=== PATIENT | male | born 1955 | race Caucasian/White ===

== ENCOUNTER 2017-01-18 03:04 | Inpatient (IN) ==
[2017-01-18] MEDS ORDERED: methylPREDNISolone 125 MG/2 ML VIAL IVP ONE (03:13)
[2017-01-18] MEDS ORDERED: Ipratropium/Albuterol Neb 3 ML IH ONE (03:13)
--- NOTE | 2017-01-18 03:16 | Emergency Department Note ---
Disposition Clinical Impression: Acute exacerbation of chronic obstructive airways disease Disposition: Admitted As Inpatient Condition: Good Time of Disposition: 04:31 General Adult HPI - General Chief complaint: ED Shortness of Breath/Dyspnea Stated complaint: KIEL Time Seen by Provider: 01/18/17 03:09 Nursing Notes Reviewed: Yes Vital Signs Reviewed: Yes - History of Present Illness HPI Narrative: Two-day history of increased cough as well as a runny nose and sore throat. A clear sputum. Does have history of COPD. He generally does not have sputum production. He is short of breath. He has orthopnea. - Related Data Allergies Allergy/AdvReac Type Severity Reaction Status Date / Time No Known Allergies Allergy Unverified 11/08/15 13:38 All systems ED: reviewed and negative except as stated. Constitutional: Denies: fever, chills Eyes: Denies: eye pain ENT ED: Reports: throat pain, congestion (2 days), other (Runny nose for 2 days) . Denies: ear pain (Sore throat for 2 days.) Cardiovascular: Reports: orthopnea. Denies: chest pain, palpitations, edema, syncope Respiratory: Reports: cough (For 2 days.), dyspnea (For 2 days progressively getting worse.), sputum production (Clear. Generally does not have sputum production.) Gastrointestinal: Denies: abdominal pain, nausea, vomiting, diarrhea, hematemesis, melena, hematochezia Genitourinary: Denies: urgency, dysuria, frequency Musculoskeletal: Denies: back pain, neck pain Neurological: Denies: headache, weakness Physical Exam - General Limitations: no limitations General appearance: alert, in distress (Moderate respiratory distress) - Head Head exam: atraumatic, normocephalic, normal inspection - Eye Eye exam: Present: normal appearance, PERRL, EOMI. Absent: scleral icterus - ENT ENT exam: normal exam, mucous membranes moist - Neck Neck exam: Present: normal inspection, full ROM, trachea midline. Absent: meningismus - Chest Chest inspection: Present: normal inspection, symmetric chest wall rise - Respiratory Respiratory exam: Present: respiratory distress, wheezes (Tight lung sounds with scant wheezing throughout.), accessory muscle use, prolonged expiratory phase - Cardiovascular Cardiovascular exam: Present: regular rate, normal rhythm, normal heart sounds - Abdominal Exam Abdominal exam: Present: soft, Non-Tender, normal bowel sounds. Absent: tenderness, distention, guarding, rebound, rigidity, organomegaly - Extremities Exam Extremities exam: Present: normal inspection, full ROM, normal capillary refill. Absent: tenderness, pedal edema - Back Exam Back exam: Present: normal inspection, full ROM. Absent: tenderness - Neurological Exam Neurological exam: Present: alert, oriented X3 - Psychiatric Psychiatric exam: Present: normal affect, normal mood - Skin Skin exam: Present: warm, dry, intact, normal color. Absent: rash, cyanosis Course Course Narrative: Male patient in moderate respiratory distress presenting to the emergency department with a 2 day history of cough sore throat rhinorrhea and congestion and increasing dyspnea. He denies any fever or chills. He does have a sick contact of his who had this cold previously but is now getting better from it. He does have a history of COPD. He states he does have a productive cough with clear sputum. He states he generally does not have a sputum production. He denies any chest pain or abdominal pain. He denies any nausea vomiting or diarrhea. He is dyspneic on arrival. He is using accessory muscles to breathe. His lung sounds are very tight with scant wheezing. He is hypoxic at 88% room air. He does not generally wear oxygen. We will get a chest x-ray and give patient breathing treatment to help open his lungs up. Will also provide steroids and get basic lab work. - Reevaluation(s) Reevaluation #1: Since lung sounds are clear at this time. However patient is sitting at bedside still using accessory muscles to breathe. He drops into the high 80s on room air. He is maintaining a oxygen saturation in low 90s on 2 L. We will admit patient for COPD exacerbation. He is agreeable to this. Time: 04:30 - Consultations Consultation #1: Dr Biswas accepted Pt in stable condition Time: 04:40 Vital Signs Temperature 98.2 F 01/18/17 03:08 Pulse Rate 74 01/18/17 03:08 Respiratory Rate 16 01/18/17 03:08 Blood Pressure 120/68 01/18/17 03:08 O2 Sat by Pulse Oximetry 88 L 01/18/17 03:08 Temperature 98.2 F 01/18/17 03:08 Pulse Rate 75 01/18/17 04:40 Respiratory Rate 18 01/18/17 05:06 Blood Pressure 119/74 01/18/17 05:06 O2 Sat by Pulse Oximetry 95 01/18/17 04:40 Oxygen Delivery Oxygen Delivery Room Air Medical Decision Making - Medical Records Medical records reviewed: Yes I reviewed the patient's medical records. - Lab Data Result diagrams: 01/18/17 03:21 01/18/17 03:21 Lab Results 01/18/17 01/18/17 01/18/17 Range/Units 03:21 03:21 03:21 WBC 6.4 (4.3-11.1) K/mcL RBC 5.01 (4.19-5.50) M/mcL Hgb 14.6 (12.9-16.9) g/dL Hct 43.4 (37.5-50.1) % MCV 86.6 (83.0-100.0) fL MCH 29.1 (28.0-33.3) pg MCHC 33.6 (31.6-35.5) g/dL RDW 13.3 (11.5-14.5) % Plt Count 186 (140-400) K/mcL MPV 9.9 (9.4-12.4) fL Immature Gran % 0.3 (0-4) % Seg Neutrophils % 59.1 % Lymphocytes % 27.9 % Monocytes % 10.2 % Eosinophils % 1.9 % Basophils % 0.6 % Neutrophils # 3.8 (1.6-8.9) K/mcL Lymphocytes # 1.8 (0.6-4.6) K/mcL Monocytes # 0.7 (0.0-1.3) K/mcL Eosinophils # 0.1 (0.0-0.6) K/mcL Basophils # 0.0 (0.0-0.2) K/mcL Sodium 140 (136-145) mEq/L Potassium 4.2 (3.5-4.5) mEq/L Chloride 108 (98-109) mEq/L Carbon Dioxide 24 (19-29) mEq/L BUN 20 (8-26) mg/dL Creatinine 1.11 (0.72-1.25) mg/dL Est GFR ( Amer) > 60 (> 60) Est GFR (Non-Af Amer) > 60 (> 60) BUN/Creatinine Ratio 18 (6-26) Glucose 101 H (70-99) mg/dL Calculated Osmolality 293 (280-300) Calcium 8.6 (8.6-10.8) mg/dL Troponin I 0.00 (0-0.03) ng/mL B-Natriuretic Peptide (0-100) pg/mL 01/18/17 Range/Units 03:21 WBC (4.3-11.1) K/mcL RBC (4.19-5.50) M/mcL Hgb (12.9-16.9) g/dL Hct (37.5-50.1) % MCV (83.0-100.0) fL MCH (28.0-33.3) pg MCHC (31.6-35.5) g/dL RDW (11.5-14.5) % Plt Count (140-400) K/mcL MPV (9.4-12.4) fL Immature Gran % (0-4) % Seg Neutrophils % % Lymphocytes % % Monocytes % % Eosinophils % % Basophils % % Neutrophils # (1.6-8.9) K/mcL Lymphocytes # (0.6-4.6) K/mcL Monocytes # (0.0-1.3) K/mcL Eosinophils # (0.0-0.6) K/mcL Basophils # (0.0-0.2) K/mcL Sodium (136-145) mEq/L Potassium (3.5-4.5) mEq/L Chloride (98-109) mEq/L Carbon Dioxide (19-29) mEq/L BUN (8-26) mg/dL Creatinine (0.72-1.25) mg/dL Est GFR ( Amer) (> 60) Est GFR (Non-Af Amer) (> 60) BUN/Creatinine Ratio (6-26) Glucose (70-99) mg/dL Calculated Osmolality (280-300) Calcium (8.6-10.8) mg/dL Troponin I (0-0.03) ng/mL B-Natriuretic Peptide 45 (0-100) pg/mL - EKG Data EKG #1 EKG attestation: Yes I reviewed and interpreted this EKG. EKG results narrative: Normal sinus rhythm at a rate of 71. ND interval is 141. Q mu-ism is 113. QT is 382. QTC is 405. No signs of acute ischemia. No significant change from previous EKG dated 03/14/2014.
--- NOTE | 2017-01-18 03:22 | Emergency Department Note ---
START Narrative - START START: For this encounter, I have reviewed the resident, COMPUTER PATTERNMAKER, or PA documentation, treatment plan, and medical decision making; and I have had face to face time with this patient. 61 yo male with hx of COPD with SOB with cough with sputum production. also reports orthopnea, rhinorrhea. Couldn't catch his breath over the past couple days. is sick with similar symptoms. Denies fever. Pt has severe wheezing in the bilateral posterior lung bob. Pt will be given Duonebs and solumedrol. Pt feels improved after treatment, became symptomatic with ambulation. Pt agreed with plan for admission for continuation of care.
[2017-01-18 03:26] LABS: Basophils % 0.6 %; Eosinophils # 0.1 K/mcL (0.0-0.6); Eosinophils % 1.9 %; Hematocrit 43.4 % (37.5-50.1); Hemoglobin 14.6 g/dL (12.9-16.9); Immature Granulocytes % 0.3 % (0-4); Lymphocytes # 1.8 K/mcL (0.6-4.6); Lymphocytes % 27.9 %; Mean Corpuscular HGB Conc 33.6 g/dL (31.6-35.5); Mean Corpuscular Hemoglobin 29.1 pg (28.0-33.3); Mean Corpuscular Volume 86.6 fL (83.0-100.0); Mean Platelet Volume 9.9 fL (9.4-12.4); Monocytes # 0.7 K/mcL (0.0-1.3); Monocytes % 10.2 %; Neutrophils # 3.8 K/mcL (1.6-8.9); Platelet Count 186 K/mcL (140-400); Red Blood Count 5.01 M/mcL (4.19-5.50); Red Cell Distribution Width 13.3 % (11.5-14.5); Segmented Neutrophils % 59.1 %
[2017-01-18 03:45] LABS: BUN/Creatinine Ratio 18 (6-26); Blood Urea Nitrogen 20 mg/dL (8-26); Calcium 8.6 mg/dL (8.6-10.8); Carbon Dioxide 24 mEq/L (19-29); Chloride 108 mEq/L (98-109); Glucose 101 mg/dL (70-99); Osmolality,Calculated 293 (280-300); Potassium 4.2 mEq/L (3.5-4.5); Sodium 140 mEq/L (136-145); eGFR For African Americans > 60 (> 60); eGFR For Non-African Americans > 60 (> 60)
[2017-01-18] MEDS ORDERED: Naloxone 0.4 MG/ML INJ IVP PRN (05:48)
[2017-01-18] MEDS ORDERED: Acetaminophen 325 MG TABLET PO PRN (05:48)
[2017-01-18] MEDS ORDERED: Ondansetron ODT 4 MG TAB.RAPDIS SL PRN (05:48)
[2017-01-18] MEDS ORDERED: Ipratropium/Albuterol Neb 3 ML IH PRN (05:50)
--- NOTE | 2017-01-18 05:51 | Event Note ---
Date of Encounter: 01/18/17 Time of Encounter: 05:50 Patient seen and examined with medical imaging technician. Acute COPD exacerbation. Will give the patient IV steroids [id number] nebulizer treatment Q4 hours and azithromycin for acute bronchitis. Patient mentioned that his was sick complains of upper respiratory symptoms. So will check for influenza. Expected stay 2 days. Inpatient admission.
--- NOTE | 2017-01-18 05:57 | Internal Med History&Physical ---
Date of Encounter: 01/18/17 Time of Encounter: 05:54 Assessment and Plan (1) Acute exacerbation of chronic obstructive airways disease Current visit: Yes Status: Acute duoneb azithromycin solumedrol supplemental O2 Internal Medicine - H&P: HPI Chief complaint: shortness of breath Admitted From: Emergency Dept Plans for Post Hospital Care: Home History of present illness: Mr. Schwarz is a 61 year old male with a history of COPD who presents to the ER with a 2 day history of increased shortness of breath and productive cough. His was sick with a flu-like illness. He had clear sputum production with his cough and shortness of breath, now without exertion. He takes his inhaler for his COPD twice a day and does not have a shortness of breath at baseline. Past Med Surg Social Fam HX - Past Medical History Medical history: COPD Psychiatric history: no psych history - Social History Smoking Status: Current every day smoker Smokeless Tobacco Status: No Alcohol use: occasionally Drug use: none Internal Medicine - H&P: Meds Albuterol Sulfate [Albuterol Inhaler] 1 puff IH BID 01/18/17 [History] Allergies No Known Allergies Allergy (Unverified 11/08/15 13:38) All Systems PM: A 10-system review of systems was performed and is negative for pertinent findings except as documented above in the HPI. - Constitutional Constitutional: no chills, no fever(s), no night sweats - EENT Eyes: no change in vision, no discharge, no pain, no photophobia Ears: no ear discharge, no ear pain, no tinnitus Nose, mouth and throat: nasal discharge, sore throat, no dysphagia, no neck pain - Cardiovascular Cardiovascular ROS IM: dyspnea, no chest pain, no diaphoresis, no lightheadedness, no palpitations, no syncope - Respiratory Respiratory: cough, dyspnea, excessive phlegm production, no wheezing - Gastrointestinal Gastrointestinal: no abdominal pain, no diarrhea, no hematemesis, no hematochezia, no melena, no nausea, no vomiting - Musculoskeletal Musculoskeletal ROS IM: no numbness, no tingling - Integumentary Integumentary IM: no rash, no unusual bruising - Neurological Neurological ROS: no confusion, no convulsions, no focal weakness, no numbness, no tingling, no tremor(s) - Hematologic/Lymphatic Hematologic/Lymphatic: no easy bruising - Constitutional Vitals: Temp Pulse Resp BP Pulse Ox 98.2 F 75 18 119/74 95 01/18/17 03:08 01/18/17 04:40 01/18/17 05:06 01/18/17 05:06 01/18/17 04:40 General appearance: Present: A&O X 3, no acute distress (on O2 via NC), answers questions appropriately - Head Head exam: Present: atraumatic, normocephalic - Eye Eye exam: Present: PERRL, conjuntiva pink, sclera anicteric Pupils: Present: PERRL - Neck Neck exam general surgery: Present: supple, trachea midline. Absent: lymphadenopathy - Respiratory Respiratory exam: Present: prolonged expiratory phase ("tight"), wheezes ( throughout). Absent: accessory muscle use, rales, rhonchi - Cardiovascular Cardiovascular exam: Present: RRR, +S1, +S2. Absent: diastolic murmur, gallop, rubs, systolic murmur - GI/Abdominal GI/Abdominal exam: Present: normal bowel sounds, soft, no peritoneal signs. Absent: distended, tenderness - Extremities Exam Extremities exam: Present: warm, radial pulses palpable and symetrical. Absent : calf tenderness, cyanotic, pedal edema - Neurological Exam Neurological exam: Present: CN II-XII intact, oriented X3, no focal deficits. Absent: pronater drift, facial droop, speech deficit - Skin Skin exam: Present: dry, intact Internal Med - H&P Results - Labs CBC & Chem 7: 01/18/17 03:21 01/18/17 03:21
[2017-01-18] MEDS: Azithromycin 500 MG in D5% in Water 250 ML IVPB SCH (06:37)
[2017-01-18] MEDS: *HR* Heparin 5,000 UNIT/ML VIAL SQ SCH ×3 (06:37→21:24)
[2017-01-18] MEDS: Nicotine 14 MG PATCH.TD24 TD SCH (09:56)
[2017-01-18] MEDS ORDERED: Ipratropium/Albuterol Neb 3 ML IH SCH (10:00)
[2017-01-18] MEDS ORDERED: MethylPREDNISolone 40 MG/ML VIAL IVP SCH (10:00)
[2017-01-18] MEDS ORDERED: methylPREDNISolone 125 MG/2 ML VIAL IVP SCH (10:00)
[2017-01-18] MEDS: Ipratropium/Albuterol Neb 3 ML IH SCH ×5 (11:22→23:00)
--- NOTE | 2017-01-18 13:46 | Internal Med Progress Note ---
Date of Encounter: 01/18/17 Time of Encounter: 13:44 - Assessment and plan (1) Acute exacerbation of chronic obstructive airways disease Current Visit: Yes Status: Acute Assessment and plan: Continue systemic steroids and bronchodilator support continue O2 supplementation monitor O2 sat (goal O2 sat: 89-92%) continue abx titrate abx dose as patient clinically improves (decreased to Solumederol 40mg IV q12h) GI ppx for high steroid therapy (2) Tobacco abuse Current Visit: Yes Status: Acute Assessment and plan: smoking cessation counseling provided patient not ready to quit at this time nicotine supplementation therapy provided (3) DVT prophylaxis Current Visit: Yes Status: Acute Assessment and plan: Heparin SQ - Subjective Interval history: Patient is a 61y/o male admitted for dsypnea secondary to COPD exacerbation. Patient seen and examined at bedside. Resting in bed and reports of feeling better compared to the previous day. Not on home oxygen and is an every day smoker. currently saturating well on nasal cannula. Denies any cough, fever, or chills at this time. - Constitutional Vitals: Temp Pulse Resp BP Pulse Ox 97.8 F 63 16 113/66 95 01/18/17 11:05 01/18/17 11:05 01/18/17 11:05 01/18/17 11:05 01/18/17 11:05 General appearance: Present: A&O X 3, no acute distress (on O2 via NC), answers questions appropriately - Head Head exam: Present: atraumatic, normocephalic - Respiratory Respiratory exam: Present: decreased breath sounds. Absent: respiratory distress, wheezes - Cardiovascular Cardiovascular exam: Present: RRR, +S1, +S2. Absent: diastolic murmur, gallop, rubs, systolic murmur - GI/Abdominal GI/Abdominal exam: Present: distended (obese), normal bowel sounds, soft, no peritoneal signs. Absent: tenderness - Extremities Exam Extremities exam: Present: warm, radial pulses palpable and symetrical. Absent : calf tenderness, pedal edema, tenderness - Neurological Exam Neurological exam: Present: alert, oriented X3, no focal deficits - Psychiatric Psychiatric exam: Present: normal affect, normal mood Internal Medicine: Result - Labs CBC & Chem 7: 01/18/17 03:21 01/18/17 03:21 Consult Discharge Plan - Plan
[2017-01-18] MEDS: MethylPREDNISolone 40 MG/ML VIAL IVP SCH (17:13)
--- NOTE | 2017-01-18 18:05 | Electrocardiograph Report ---
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
[2017-01-19] MEDS: Ipratropium/Albuterol Neb 3 ML IH SCH ×3 (04:03→11:22)
[2017-01-19 05:18] LABS: Basophils % 0.1 %; Hematocrit 40.4 % (37.5-50.1); Hemoglobin 13.5 g/dL (12.9-16.9); Immature Granulocytes % 0.5 % (0-4); Lymphocytes % 9.4 %; Mean Corpuscular HGB Conc 33.4 g/dL (31.6-35.5); Mean Corpuscular Volume 86.9 fL (83.0-100.0); Mean Platelet Volume 10.3 fL (9.4-12.4); Monocytes # 0.8 K/mcL (0.0-1.3); Monocytes % 6.9 %; Platelet Count 195 K/mcL (140-400); Red Blood Count 4.65 M/mcL (4.19-5.50); Red Cell Distribution Width 13.6 % (11.5-14.5); Segmented Neutrophils % 83.1 %
[2017-01-19 05:23] LABS: Neutrophils # 9.1 K/mcL (1.6-8.9)
[2017-01-19 05:40] LABS: BUN/Creatinine Ratio 20 (6-26); Blood Urea Nitrogen 19 mg/dL (8-26); Calcium 8.4 mg/dL (8.6-10.8); Carbon Dioxide 24 mEq/L (19-29); Chloride 104 mEq/L (98-109); Glucose 141 mg/dL (70-99); Osmolality,Calculated 293 (280-300); Phosphorous 3.7 mg/dL (2.3-4.7); Potassium 4.3 mEq/L (3.5-4.5); Sodium 139 mEq/L (136-145); eGFR For African Americans > 60 (> 60); eGFR For Non-African Americans > 60 (> 60)
[2017-01-19] MEDS: MethylPREDNISolone 40 MG/ML VIAL IVP SCH (06:25)
[2017-01-19] MEDS: Azithromycin 500 MG in D5% in Water 250 ML IVPB SCH (06:28)
[2017-01-19] MEDS: *HR* Heparin 5,000 UNIT/ML VIAL SQ SCH ×2 (06:30→13:39)
[2017-01-19] MEDS: Nicotine 14 MG PATCH.TD24 TD SCH (09:25)
[2017-01-19 10:42] VITALS: BP 121/69
--- NOTE | 2017-01-19 14:35 | Discharge Summary ---
Date of Encounter: 01/19/17 Time of Encounter: 14:33 - Discharge Diagnosis (1) Acute exacerbation of chronic obstructive airways disease Priority: Primary Status: Acute (2) Tobacco abuse Priority: Secondary Status: Acute (3) DVT prophylaxis Priority: Secondary Status: Acute - Discharge Medications Prescriptions: Albuterol Sulfate [Albuterol Inhaler] 2 puff IH Q4H PRN #4 inhaler PRN Reason: Shortness Of Breath Azithromycin [Zithromax] 500 mg PO DAILY #3 tablet PredniSONE 40 mg PO DAILY #7 tablet Home Medications: Budesonide/Formoterol 160/4.5 [Symbicort 160/4.5] 2 puff IH BID 01/18/17 [ History] Albuterol Sulfate [Albuterol Inhaler] 2 puff IH Q4H PRN #4 inhaler 01/19/17 [Rx] Azithromycin [Zithromax] 500 mg PO DAILY #3 tablet 01/19/17 [Rx] PredniSONE 40 mg PO DAILY #7 tablet 01/19/17 [Rx] Allergies/Adverse Reactions: Allergies ibuprofen [From Motrin] Adverse Reaction (Verified 01/18/17 08:22) Weakness Procedures/tests Complete & Pending: Procedures Performed prior 72 hours Category Date Time Status EKG [ECG 12 lead ECG] [ECG] Routine Y 01/18/17 21:25 Ordered Date of admission: 01/18/17 07:25 Primary care physician: Noe Farias MD Discharging clinician: rFeda Francis Anticipated date of discharge: 01/19/17 - Patient Status Disposition: Home, Self-Care Condition: Good Functional capacity at discharge: independent ambulation Overall status at discharge: patient is back to baseline - Discharge Instructions Follow Up With: Noe Farias MD [Primary Care Provider] - Forms: ED Satisfaction Letter Additional Instructions: Please follow-up with your primary care physician within 5 days after discharge from the hospital. Please continue to take prednisone and azithromycin as prescribed. Smoking cessation is recommended. Albuterol inhaler has been added to your home medications. Please use this inhaler as needed. Resume all home medications as prescribed by your primary care physician. - Diet and Activity Activity: resume usual activities as tolerated Diet: advance to your usual diet Hospital course: Mr. Schwarz is a 61 year old male with past medical history of COPD and tobacco abuse who was admitted for shortness of breath secondary to COPD exacerbation. Patient was started on IV steroids and bronchodilators, and IV antibiotics. He responded well to therapy and reports of feeling significantly better since his hospitalization. Extensive smoking cessation counseling was provided and patient states that he will try to quit after discharge. He is currently hemodynamically stable and saturating well on room air. He will be discharged home with oral steroids and oral antibiotics. He is to follow up with his primary care physician within 5 days after his discharge from the hospital. Patient demonstrates understanding of his diagnosis and agrees with the discharge care and plan. Time spent discussing smoking cessation with patient: 3 to 10 minutes - Time Spent with Patient Total time spent providing and/or coordinating discharge services: Less than 30 minutes - Constitutional Vitals: Temp Pulse Resp BP Pulse Ox 97.7 F 69 20 121/69 93 L 01/19/17 10:34 01/19/17 10:34 01/19/17 11:23 01/19/17 10:34 01/19/17 11:23 General appearance: Present: A&O X 3, no acute distress (on O2 via NC), answers questions appropriately - Head Head exam: Present: atraumatic, normocephalic - Eye Eye exam: Present: PERRL, conjuntiva pink, sclera anicteric - Respiratory Respiratory exam: Present: decreased breath sounds (equal air entry bilaterally) . Absent: respiratory distress, wheezes - Cardiovascular Cardiovascular exam: Present: RRR, +S1, +S2 - Extremities Exam Extremities exam: Present: warm, radial pulses palpable and symetrical. Absent : calf tenderness, cyanotic, pedal edema - Neurological Exam Neurological exam: Present: alert, oriented X3 - Psychiatric Psychiatric exam: Present: normal affect, normal mood
--- NOTE | 2017-01-21 15:10 | Electrocardiograph Report ---
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
== END 2017-01-19 15:15 | disposition home or self-care (01) | DRG 192 ==
LOC: EMEROO 03:04 → 3BNU 03:04 → SUATTDRO 05:04 → 3BNU 05:23
PROVIDERS: ADMIT Hospitalist; ATTEND Internal Medicine

== ENCOUNTER 2017-01-22 11:14 | Inpatient (IN) ==
[2017-01-22] MEDS ORDERED: Acetaminophen 325 MG TABLET PO PRN (13:26)
--- NOTE | 2017-01-22 14:07 | Internal Med History&Physical ---
Date of Encounter: 01/22/17 Time of Encounter: 13:54 Assessment and Plan (1) Acute respiratory failure with hypoxia Current visit: Yes Status: Acute Patient's oxygen saturation was 88% on room air in his PCP office and dropped to 84% but minimal ambulation. Oxygen saturation improved to 94% with supplemental oxygen at 2 L/m. 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 His respiratory failure is likely secondary to COPD exacerbation. Other causes for respiratory failure such as pneumonia, pleural effusion and acute exacerbation of CHF been considered and ruled out based on clinical and x-ray findings. Pulmonary embolus has been ruled out given the patient has no tachycardia and no chest pain. I have obtained an ABG which which reflects moderate hypoxemia, normal CO2 and respiratory alkalosis likely compensatory. We will treat the patient with oxygen by nasal cannula to maintain saturation above 92%. We will requalify him for home oxygen just prior to discharge. (2) COPD exacerbation Current visit: No Status: Acute This is a moderate to severe COPD exacerbation causing severe functional limitation. The patient received treatment with prednisone outpatient and inhaled albuterol however his symptoms continued to get worse every day and therefore he failed outpatient treatment. I will check viral respiratory panel to rule out viral infection as a possible trigger. Patient does report increased sputum production of "slimy brown sputum ". We will treat him with antibiotics, add IV Levaquin. We will treat him with IV steroids and inhaled albuterol and Atrovent. We will refer him to outpatient PFTs after the current episode has resolved. (3) DVT prophylaxis Current visit: No Status: Acute Currently the patient is quite immobile due to severe limitation secondary to dyspnea on exertion and shortness of breath and therefore he will benefit from DVT prophylaxis with Lovenox. (4) Tobacco abuse Current visit: No Status: Acute Have encouraged the patient to continue to refrain from smoking and emphasized the benefits of smoking cessation and provided him with smoking cessation resources. Internal Medicine - H&P: HPI Chief complaint: Shortness of breath Admitted From: Direct Admit Plans for Post Hospital Care: Home History of present illness: Mr. Schwarz is a 61 year old male with past medical history significant for COPD who was recently admitted to our service and treated for COPD exacerbation and was coming today for evaluation of shortness of breath. He was in his usual state of health until 7 days ago when he started having gradually increasing shortness of breath and wheezing. 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 One day later and shortness of breath has gotten more severe and he presented to the hospital. He was admitted and treated in the hospital for COPD exacerbation and discharged home. On the day of discharge he reported no shortness of breath, no chest pain, persistent cough. While at home he reported compliance with this medication. In spite of that he started feeling more short of breath every day. He has a follow-up appointment with his PCP yesterday and he appeared to be severely short of breath, speaking in single word sentences and his oxygen saturation on room air was 88% at rest. He was referred to be evaluated in the emergency department which was done yesterday and he was discharged home with home oxygen. While at home he reported that his shortness of breath was mild to moderate at rest improved with use of oxygen at 2 L by nasal cannula. He reported continued cough productive of brown sputum and associated wheezing. He states that when he ambulates 15 feet he gets completely breathless and in spite of using oxygen he has to sit down to rest. He presented to the hospital for a follow-up visit and is being directly admitted for further care. A 10 point review of systems was negative except as above. Past medical history pertinent for COPD, no history of oxygen dependence. Family history was reviewed and found to be noncontributory to this presentation. 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 Has been a lifelong smoker up until a week ago when he was admitted to the hospital and reports that he has not smoked since discharge. Drinks beers occasionally, denies recreational drug use. Past Med Surg Social Fam HX - Past Medical History Medical history: asthma, COPD Psychiatric history: no psych history - Past Surgical History Surgical History: non-contributory - Social History Smoking Status: Former smoker Smokeless Tobacco Status: No Alcohol use: occasionally Drug use: none Internal Medicine - H&P: Meds Budesonide/Formoterol 160/4.5 [Symbicort 160/4.5] 2 puff IH BID 01/18/17 [ History] Albuterol Sulfate [Albuterol Inhaler] 2 puff IH Q4H PRN #4 inhaler 01/19/17 [Rx] Azithromycin [Zithromax] 500 mg PO DAILY #3 tablet 01/19/17 [Rx] PredniSONE 40 mg PO DAILY #7 tablet 01/19/17 [Rx] Ipratropium/Albuterol Neb [Duoneb] 3 ml IH Q4HR PRN #30 vial.neb 01/21/17 [Rx] Allergies No Known Allergies Allergy (Verified 01/21/17 14:01) All Systems PM: A 10-system review of systems was performed and is negative for pertinent findings except as documented above in the HPI. - Constitutional Vitals: Temp Pulse Resp BP Pulse Ox 97.9 F 62 18 138/83 95 01/22/17 13:17 01/22/17 13:17 01/22/17 13:17 01/22/17 13:17 01/22/17 13:17 General appearance: Present: A&O X 3, no acute distress Exam: Speaks in full sentences while at rest while wearing oxygen. While ambulating 12 feet the patient appears breath loss and tachypneic - Head Head exam: Present: atraumatic, normocephalic - Eye Eye exam: Present: PERRL, conjuntiva pink, sclera anicteric Pupils: Present: PERRL - Respiratory Respiratory exam: Present: decreased breath sounds, CTAB, prolonged expiratory phase, wheezes. Absent: accessory muscle use, rales, respiratory distress, rhonchi, stridor - Cardiovascular Cardiovascular exam: Present: RRR, +S1, +S2. Absent: diastolic murmur, gallop, rubs, systolic murmur - GI/Abdominal GI/Abdominal exam: Present: normal bowel sounds, soft, no peritoneal signs. Absent: distended, tenderness - Extremities Exam Extremities exam: Present: warm, radial pulses palpable and symetrical. Absent : calf tenderness, cyanotic, pedal edema - Neurological Exam Neurological exam: Present: CN II-XII intact, oriented X3, no focal deficits. Absent: pronater drift, facial droop, speech deficit - Skin Skin exam: Present: dry, intact Internal Med - H&P Results - Labs Labs: Review of past medical records from ER visit on 01/21/2017 blood work reveals hemoglobin 14.8. Platelets 9.1 platelet count 196. Chemistry: Sodium 137 potassium 4.0 BUN 18 creatinine 1.06 glucose 87. Troponin 0.00 BNP 54. Chest x-ray done yesterday which I personally reviewed shows no infiltrate effusion or vascular congestion. - EKG Data -: EKG Interpreted by Myself EKG shows normal: sinus rhythm (69 bpm), intervals, QRS complexes
[2017-01-22 14:11] LABS: ABG Base Excess 4.9 mEq/L (-2.0 to 3.0); ABG HCO3 29.2 mEQ/L (21-27); ABG Oxygen Saturation 95 % (95-98); ABG PCO2 41 mmHg (35-45); ABG PH 7.46 pH Units (7.32-7.45); ABG PO2 73 mmHg (85-104); ABG TCO2 30.5 mEq/L (20-26)
[2017-01-22 14:13] LABS: Blood Gas Liter Flow 3.5 L/MIN
[2017-01-22] MEDS: Levofloxacin 750 MG/150 ML 750 MG/150 ML BAG IVPB SCH (14:34)
[2017-01-22] MEDS: methylPREDNISolone 125 MG/2 ML VIAL IVP SCH ×2 (14:35→17:44)
[2017-01-22] MEDS: Ipratropium/Albuterol Neb 3 ML IH SCH ×3 (16:37→23:05)
[2017-01-22] MEDS ORDERED: Ipratropium/Albuterol Neb 3 ML IH PRN (18:17)
[2017-01-22 18:21] LABS: Adenovirus Not Detected (Not Detect); Coronavirus 229E Not Detected (Not Detect); Coronavirus HKU1 Not Detected (Not Detect); Coronavirus NL63 Not Detected (Not Detect); Coronavirus OC43 Not Detected (Not Detect)
[2017-01-22 18:22] LABS: Bordetella Pertussis Not Detected (Not Detect); Chlamydophila pneumoniae Not Detected (Not Detect); Human Metapneumovirus Not Detected (Not Detect); Human Rhinovirus/Enterovirus ***DETECTED*** (Not Detect); Influenza A Subtype 2009 H1 Not Detected (Not Detect); Influenza A Untypeable Not Detected (Not Detect); Influenza B Not Detected (Not Detect); Mycoplasma pneumoniae Not Detected (Not Detect); Parainfluenza Virus 1 Not Detected (Not Detect); Parainfluenza Virus 2 Not Detected (Not Detect); Parainfluenza Virus 3 Not Detected (Not Detect); Parainfluenza Virus 4 Not Detected (Not Detect); Respiratory Syncytial Virus Not Detected (Not Detect)
[2017-01-22] MEDS: Budesonide/Formoterol 160/4.5 MDI IH SCH (20:24)
[2017-01-23] MEDS: methylPREDNISolone 125 MG/2 ML VIAL IVP SCH ×3 (00:01→12:52)
[2017-01-23] MEDS: Ipratropium/Albuterol Neb 3 ML IH SCH ×6 (03:49→23:06)
[2017-01-23 05:58] LABS: Basophils % 0.1 %; Hematocrit 40.7 % (37.5-50.1); Hemoglobin 14.1 g/dL (12.9-16.9); Immature Granulocytes % 0.8 % (0-4); Lymphocytes % 9.4 %; Mean Corpuscular HGB Conc 34.6 g/dL (31.6-35.5); Mean Corpuscular Hemoglobin 29.6 pg (28.0-33.3); Mean Corpuscular Volume 85.3 fL (83.0-100.0); Mean Platelet Volume 10.5 fL (9.4-12.4); Monocytes # 0.4 K/mcL (0.0-1.3); Monocytes % 3.3 %; Neutrophils # 9.1 K/mcL (1.6-8.9); Platelet Count 211 K/mcL (140-400); Red Blood Count 4.77 M/mcL (4.19-5.50); Segmented Neutrophils % 86.4 %
[2017-01-23] MEDS: *HR* Enoxaparin 40 MG/0.4 ML SYRINGE SQ SCH (05:58)
[2017-01-23 06:10] LABS: BUN/Creatinine Ratio 26 (6-26); Blood Urea Nitrogen 26 mg/dL (8-26); Calcium 8.5 mg/dL (8.6-10.8); Carbon Dioxide 22 mEq/L (19-29); Chloride 101 mEq/L (98-109); Glucose 136 mg/dL (70-99); Magnesium 2.2 mg/dL (1.6-2.6); Osmolality,Calculated 287 (280-300); Potassium 4.4 mEq/L (3.5-4.5); Sodium 135 mEq/L (136-145); eGFR For African Americans > 60 (> 60); eGFR For Non-African Americans > 60 (> 60)
[2017-01-23] MEDS: Budesonide/Formoterol 160/4.5 MDI IH SCH ×2 (08:23→20:17)
[2017-01-23] MEDS: Levofloxacin 750 MG/150 ML 750 MG/150 ML BAG IVPB SCH (09:15)
--- NOTE | 2017-01-23 13:48 | Internal Med Progress Note ---
Date of Encounter: 01/23/17 Time of Encounter: 13:45 - Assessment and plan (1) Acute respiratory failure with hypoxia Current Visit: Yes Status: Acute Assessment and plan: Acute chronic hypoxic respiratory failure secondary to acute COPD exacerbation due to rhinovirus infection/bronchitis Continue IV Solu-Medrol decreased dose down to 40 mg IV 3 times a day Consider discontinuing Levaquin day 2 Continue oxygen therapy, recently qualified for oxygen at home Continue DuoNeb's (2) Rhinovirus infection Current Visit: Yes Status: Acute (3) Acute exacerbation of chronic obstructive airways disease Current Visit: No Status: Acute Assessment and plan: High risk for respiratory failure (4) Tobacco abuse Current Visit: No Status: Acute Assessment and plan: Smoking cessation counseling given for 5 minutes Nicotine patch offered - Time Spent With Patient Greater than 35 minutes - Subjective Interval history: Feeling less short of breath, no chest pain, no abdominal pain, no dysuria, no fevers overnight. Feels still weak - Constitutional Vitals: Temp Pulse Resp BP Pulse Ox 97.8 F 79 16 113/68 95 01/23/17 10:35 01/23/17 10:35 01/23/17 10:35 01/23/17 10:35 01/23/17 10:35 General appearance: Present: A&O X 3, no acute distress - Head Head exam: Present: atraumatic, normocephalic - Eye Eye exam: Present: PERRL, conjuntiva pink, sclera anicteric Pupils: Present: PERRL - Neck Neck exam general surgery: Present: supple, trachea midline. Absent: lymphadenopathy - Respiratory Respiratory exam: Present: decreased breath sounds (Very diminished breath sounds, with diffuse wheezing), CTAB, wheezes. Absent: accessory muscle use, rales, rhonchi - Cardiovascular Cardiovascular exam: Present: RRR, +S1, +S2. Absent: diastolic murmur, gallop, rubs, systolic murmur - GI/Abdominal GI/Abdominal exam: Present: normal bowel sounds, soft, no peritoneal signs. Absent: distended, tenderness - Extremities Exam Extremities exam: Present: warm, radial pulses palpable and symetrical. Absent : calf tenderness, cyanotic, pedal edema - Neurological Exam Neurological exam: Present: CN II-XII intact, oriented X3, no focal deficits. Absent: pronater drift, facial droop, speech deficit - Skin Skin exam: Present: dry, intact Internal Medicine: Result - Labs CBC & Chem 7: 01/23/17 05:18 01/23/17 05:18 Labs: Short CBC 01/23/17 Range/Units 05:18 WBC 10.6 (4.3-11.1) K/mcL Hgb 14.1 (12.9-16.9) g/dL Hct 40.7 (37.5-50.1) % Plt Count 211 (140-400) K/mcL Neutrophils # 9.1 H (1.6-8.9) K/mcL BMP 01/23/17 05:18 Sodium 135 L Potassium 4.4 Chloride 101 Carbon Dioxide 22 BUN 26 Creatinine 0.99 Glucose 136 H Calcium 8.5 L - ABG Interpretation ABG results: ABG ABG pH 7.46 pH Units (7.32-7.45) H 01/22/17 14:00 ABG pCO2 41 mmHg (35-45) 01/22/17 14:00 ABG pO2 73 mmHg (85-104) L 01/22/17 14:00 ABG O2 Saturation 95 % (95-98) 01/22/17 14:00 Consult Discharge Plan - Plan Referrals: Noe Farias MD [Primary Care Provider] -
[2017-01-23] MEDS: MethylPREDNISolone 40 MG/ML VIAL IVP SCH ×2 (16:52→23:32)
[2017-01-24] MEDS: Ipratropium/Albuterol Neb 3 ML IH SCH ×6 (04:17→23:06)
[2017-01-24] MEDS: *HR* Enoxaparin 40 MG/0.4 ML SYRINGE SQ SCH (05:26)
[2017-01-24] MEDS: Budesonide/Formoterol 160/4.5 MDI IH SCH ×2 (07:38→19:50)
[2017-01-24] MEDS: MethylPREDNISolone 40 MG/ML VIAL IVP SCH ×2 (09:23→23:45)
[2017-01-24] MEDS: Levofloxacin 750 MG/150 ML 750 MG/150 ML BAG IVPB SCH (09:23)
--- NOTE | 2017-01-24 09:48 | Internal Med Progress Note ---
Date of Encounter: 01/24/17 Time of Encounter: 09:47 - Assessment and plan (1) Acute respiratory failure with hypoxia Current Visit: Yes Status: Acute Assessment and plan: Acute chronic hypoxic respiratory failure secondary to acute COPD exacerbation due to rhinovirus infection/bronchitis Continue IV Solu-Medrol decreased dose down to 40 mg IV 3 times a day Consider discontinuing Levaquin day 3 Continue oxygen therapy, recently qualified for oxygen at home Continue DuoNeb's (2) Rhinovirus infection Current Visit: Yes Status: Acute (3) Acute exacerbation of chronic obstructive airways disease Current Visit: No Status: Acute Assessment and plan: High risk for respiratory failure (4) Tobacco abuse Current Visit: No Status: Acute Assessment and plan: Smoking cessation counseling given for 5 minutes Nicotine patch offered - Time Spent With Patient Greater than 35 minutes - Subjective Interval history: Feeling less short of breath than the prior days, no chest pain, no abdominal pain, no dysuria, no fevers overnight. Feels less weak - Constitutional Vitals: Temp Pulse Resp BP Pulse Ox 98.0 F 69 16 131/66 96 01/24/17 07:00 01/24/17 07:00 01/24/17 07:00 01/24/17 07:00 01/24/17 07:00 General appearance: Present: A&O X 3, no acute distress - Head Head exam: Present: atraumatic, normocephalic - Eye Eye exam: Present: PERRL, conjuntiva pink, sclera anicteric Pupils: Present: PERRL - Neck Neck exam general surgery: Present: supple, trachea midline. Absent: lymphadenopathy - Respiratory Respiratory exam: Present: decreased breath sounds (Very diminished breath sounds with less wheezing), CTAB, wheezes. Absent: accessory muscle use, rales , rhonchi - Cardiovascular Cardiovascular exam: Present: RRR, +S1, +S2. Absent: diastolic murmur, gallop, rubs, systolic murmur - GI/Abdominal GI/Abdominal exam: Present: normal bowel sounds, soft, no peritoneal signs. Absent: distended, tenderness - Extremities Exam Extremities exam: Present: warm, radial pulses palpable and symetrical. Absent : calf tenderness, cyanotic, pedal edema - Neurological Exam Neurological exam: Present: CN II-XII intact, oriented X3, no focal deficits. Absent: pronater drift, facial droop, speech deficit - Skin Skin exam: Present: dry, intact Internal Medicine: Result - Labs CBC & Chem 7: 01/23/17 05:18 01/23/17 05:18 - ABG Interpretation ABG results: ABG ABG pH 7.46 pH Units (7.32-7.45) H 01/22/17 14:00 ABG pCO2 41 mmHg (35-45) 01/22/17 14:00 ABG pO2 73 mmHg (85-104) L 01/22/17 14:00 ABG O2 Saturation 95 % (95-98) 01/22/17 14:00 Consult Discharge Plan - Plan Referrals: Noe Farias MD [Primary Care Provider] -
[2017-01-25] MEDS ORDERED: Ketorolac 15 MG/ML VIAL IVP PRN (01:06)
[2017-01-25] MEDS ORDERED: *HR* OxyCODONE Immed Rel 5 MG TABLET PO PRN (01:06)
[2017-01-25] MEDS: Ipratropium/Albuterol Neb 3 ML IH SCH ×3 (04:04→11:26)
[2017-01-25] MEDS: *HR* Enoxaparin 40 MG/0.4 ML SYRINGE SQ SCH (05:53)
[2017-01-25] MEDS: Budesonide/Formoterol 160/4.5 MDI IH SCH (07:40)
--- NOTE | 2017-01-25 08:59 | Discharge Summary ---
Date of Encounter: 01/25/17 Time of Encounter: 08:53 - Discharge Diagnosis (1) Acute respiratory failure with hypoxia Priority: Primary Status: Acute Comments: Acute on chronic hypoxic respiratory failure secondary to acute COPD exacerbation due to rhinovirus infection/bronchitis Was using 2 Lt of oxygen at home stop Levaquin day 4 (2) Rhinovirus infection Priority: Primary Status: Acute (3) Acute exacerbation of chronic obstructive airways disease Priority: Primary Status: Acute (4) Tobacco abuse Priority: Secondary Status: Acute - Discharge Medications Prescriptions: OxyCODONE Immed Rel [Roxicodone 5 MG] 10 mg PO Q6HR PRN #30 tablet PRN Reason: Severe Pain PredniSONE 10 mg PO DAILY 18 Days Home Medications: Budesonide/Formoterol 160/4.5 [Symbicort 160/4.5] 2 puff IH BID 01/18/17 [ History] Albuterol Sulfate [Albuterol Inhaler] 2 puff IH Q4H PRN #4 inhaler 01/19/17 [Rx] Ipratropium/Albuterol Neb [Duoneb] 3 ml IH Q4HR PRN #30 vial.neb 01/21/17 [Rx] OxyCODONE Immed Rel [Roxicodone 5 MG] 10 mg PO Q6HR PRN #30 tablet 01/25/17 [Rx] PredniSONE 10 mg PO DAILY 18 Days 01/25/17 [Rx] Allergies/Adverse Reactions: Allergies No Known Allergies Allergy (Verified 01/21/17 14:01) Date of admission: 01/22/17 16:28 Primary care physician: Noe Farias MD - Patient Status Disposition: Home, Self-Care Condition: Good Overall status at discharge: patient is progressing back to baseline - Discharge Instructions Follow Up With: Noe Farias MD [Primary Care Provider] - Additional Instructions: Follow with primary care physician within the next 7 days. Continue prednisone taper. Continue inhalers and oxygen as needed. Quit smoking - Diet and Activity Activity: increase activity as tolerated Diet: low fat, low cholesterol Hospital course: Mr. Schwarz is a 61 year old male with past medical history significant for COPD who was recently admitted to our service and treated for a COPD exacerbation. He was in his usual state of health until 7 days ago when he started having gradually increasing shortness of breath and wheezing. 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 His shortness of breath got more severe and he presented to the hospital. He was admitted and treated in the hospital for COPD exacerbation and discharged home. On the day of discharge he reported no shortness of breath, no chest pain, persistent cough. While at home he reported compliance with this medication. In spite of that, he started feeling more short of breath every day. His saturation on room air was 88% at rest. While at home he reported that his shortness of breath was mild to moderate at rest improved with use of oxygen at 2 L by nasal cannula. He reported continued cough productive of brown sputum and associated wheezing. Upon admission, his ABG shows a pH of 7.46 PCO2 of 41 and PO2 of 73. He was positive for rhino/enterovirus. Was started on IV Solu-Medrol and Levaquin, has completed 4 days of Levaquin. Time spent discussing smoking cessation with patient: 3 to 10 minutes - Time Spent with Patient Total time spent providing and/or coordinating discharge services: Greater than 30 minutes (40 min) - Constitutional Vitals: Temp Pulse Resp BP Pulse Ox 98.0 F 67 16 132/72 96 01/24/17 07:00 01/25/17 05:10 01/25/17 07:42 01/25/17 05:10 01/25/17 07:42 General appearance: Present: A&O X 3, no acute distress - Head Head exam: Present: atraumatic, normocephalic - Eye Eye exam: Present: PERRL, conjuntiva pink, sclera anicteric Pupils: Present: PERRL - Neck Neck exam general surgery: Present: supple, trachea midline. Absent: lymphadenopathy - Respiratory Respiratory exam: Present: decreased breath sounds (Very diminished breath sounds), CTAB. Absent: accessory muscle use, rales, rhonchi, wheezes - Cardiovascular Cardiovascular exam: Present: RRR, +S1, +S2. Absent: diastolic murmur, gallop, rubs, systolic murmur - GI/Abdominal GI/Abdominal exam: Present: normal bowel sounds, soft, no peritoneal signs. Absent: distended, tenderness - Extremities Exam Extremities exam: Present: warm, radial pulses palpable and symetrical. Absent : calf tenderness, cyanotic, pedal edema - Neurological Exam Neurological exam: Present: CN II-XII intact, oriented X3, no focal deficits. Absent: pronater drift, facial droop, speech deficit - Skin Skin exam: Present: dry, intact
[2017-01-25] MEDS ORDERED: levoFLOXacin 750 MG TABLET PO SCH (09:00)
[2017-01-25 11:55] VITALS: BP 127/80
--- NOTE | 2017-01-25 15:10 | Electrocardiograph Report ---
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
== END 2017-01-25 13:05 | disposition home or self-care (01) | DRG 189 ==
LOC: 2NENU
PROVIDERS: ADMIT Internal Medicine; ATTEND Internal Medicine